=== PATIENT | female | born 2000 | race Hispanic/Latino ===

== ENCOUNTER 2020-07-30 16:17 | Outpatient (CLI) | payer SELFPAY ==
[2020-07-30 17:07] LABS: BHCG - Serum Negative (NEGATIVE); Pregs Control Background? CLEAR/WHITE (CLR/WHITE); Pregs Control Bar Appear? YES (CONTROL BAR)
[2020-07-31 00:41] LABS: SARS-CoV-2 NAA Rapid Test Not Detected (NotDetected)
== END 2020-07-30 16:18 | disposition home or self-care (01) ==
LOC: LABBT 16:17
PROVIDERS: ATTEND Plastic Surgery
DX: Z01.818 Encounter for other preprocedural examination (principal); N62 Hypertrophy of breast
CPT/HCPCS: 84703; U0002; U0005

== ENCOUNTER 2020-08-04 06:03 | Day surgery (SDC) | payer OTHER ==
[2020-08-01 14:53] VITALS: BMI 25.7
[2020-08-04] MEDS ORDERED: Meperidine HCl/PF 25 MG/ML VIAL ONE (06:14)
[2020-08-04] MEDS ORDERED: Fentanyl 100 MCG/2 ML VIAL ONE ×2 (06:14)
[2020-08-04] MEDS ORDERED: Famotidine/PF 20 mg/2ml Vial ONE (06:14)
[2020-08-04] MEDS ORDERED: Dexmedetomidine 200 MCG/2 ML VIAL ONE (06:14)
[2020-08-04] MEDS ORDERED: Heparin 5,000 UNITS/ML VIAL ONE (06:21)
[2020-08-04] MEDS ORDERED: EPINEPHrine 1 MG/ML AMP ONE (06:40)
[2020-08-04] MEDS ORDERED: Lidocaine 1% (PF) 30 ML VIAL ONE (06:40)
[2020-08-04] MEDS ORDERED: Gentamicin 80 MG/2 ML VIAL ONE (06:40)
[2020-08-04] MEDS ORDERED: Bupivacaine 0.25% HCL 30 ML VIAL ONE ×2 (06:40→06:45)
[2020-08-04] MEDS ORDERED: Midazolam HCl 2 mg/2 ml Vial ONE (07:12)
[2020-08-04] MEDS ORDERED: SUGAMMADEX SODIUM 500 MG/5 ML VIAL ONE (07:24)
[2020-08-04] MEDS ORDERED: Rocuronium Bromide 10 MG/ML (10ML VIAL) ONE (07:30)
[2020-08-04] MEDS ORDERED: Lidocaine 1% PF 5 ML VIAL ONE (07:30)
[2020-08-04] MEDS ORDERED: Ondansetron PF 4 MG/2 ML Vial ONE (07:30)
[2020-08-04] MEDS ORDERED: Metoclopramide HCl 10 MG/2 ML VIAL ONE (07:30)
[2020-08-04] MEDS ORDERED: PROPOFOL 200 MG/20 ML VIAL ONE (07:30)
[2020-08-04] MEDS ORDERED: Dexamethasone 20 MG/5 ML VIAL ONE (07:30)
== END 2020-08-04 14:30 | disposition home or self-care (01) ==
LOC: SDC 06:03
PROVIDERS: ATTEND Plastic Surgery
PROC: 0HBV0ZZ Excision of Bilateral Breast, Open Approach (ICD-10-PCS; principal; 2020-08-04)
DX: N62 Hypertrophy of breast (principal); Z79.899 Other long term (current) drug therapy; Z91.048 Other nonmedicinal substance allergy status
CPT/HCPCS: 88305; J0171; J0690; J1100; J1580; J1644; J2001; J2175; J2250; J2405; J2704; J2765; J3010; J3370; J3490; S0020; S0028